=== PATIENT | male | born 1990 | race Two or more races ===

== ENCOUNTER 2020-04-13 18:40 | Emergency (ER) | payer SELFPAY ==
[~2020-04-13] VITALS: Ht 175.3 cm; Wt 77.1 kg
--- NOTE | 2020-04-13 19:05 | NUR ---
Received report from MIGUEL Darby. Assumed care of pt.
[2020-04-13] MEDS ORDERED: LORazepam 1mg tab ORAL ONE (19:15)
--- NOTE | 2020-04-13 19:18 | NUR ---
ED Nurse Note: pt vomiting. MD notified. MD placed order for PO ativan, pt unable to tolerate. MD notified & verbalized to switch to IV.
[2020-04-13] MEDS ORDERED: LORazepam Inj 2mg/ml 1ml IV ONE (19:30)
[2020-04-13 19:37] LABS: ANION GAP 20 mmol/L (5-15); BLOOD UREA NITROGEN 12 mg/dL (7-18); CALCIUM 9.1 MG/DL (8.5-10.1); CARBON DIOXIDE 21 MMOL/L (21-32); CHLORIDE 103 MMOL/L (98-107); POTASSIUM 3.3 MMOL/L (3.5-5.1); SODIUM 144 MMOL/L (136-145)
[2020-04-13 19:40] LABS: BASOPHILS % (AUTO) 1.5 % (0.0-2.0); EOSINOPHILS % (AUTO) 0.1 % (0.0-3.0); HEMATOCRIT 45.4 % (42.0-52.0); HEMOGLOBIN 15.4 G/DL (14.2-18.0); LYMPHOCYTES % (AUTO) 20.4 % (20.0-45.0); MEAN CORPUSCULAR VOLUME 93 FL (80-99); MONOCYTES % (AUTO) 5.7 % (1.0-10.0); NEUTROPHILS % (AUTO) 72.3 % (45.0-75.0); PLATELET COUNT 299 K/UL (150-450); RED BLOOD COUNT 4.86 M/UL (4.70-6.10); RED CELL DISTRIBUTION WIDTH 11.7 % (11.6-14.8); WHITE BLOOD COUNT 10.2 K/UL (4.8-10.8)
[2020-04-13 19:50] LABS: ALANINE AMINOTRANSFERASE 135 U/L (12-78); ALBUMIN 4.6 G/DL (3.4-5.0); ALBUMIN/GLOBULIN RATIO 1.1 (1.0-2.7); ALKALINE PHOSPHATASE 96 U/L (46-116); ASPARTATE AMINO TRANSFERASE 72 U/L (15-37); BILIRUBIN,TOTAL 0.6 MG/DL (0.2-1.0)
--- NOTE | 2020-04-13 21:08 | Emergency Room Report ---
History of Present Illness General Chief Complaint: Behavioral Complaint Source: Patient Present Illness HPI This patient states he has a history of anxiety. He states he was in his friend's car when he suddenly had a panic attack. He states he became nauseous and then felt like he could not breathe and then both his hands cramped up. He states he has never had this severe of an episode in the past. He denies recent illness. He denies cough or congestion. Denies fever or chills. He denies use of drugs or alcohol recently. He has no other complaints. Allergies: Coded Allergies: No Known Allergies (Unverified , 04/13/20) COVID-19 Screening Contact w/high risk pt: No Experienced COVID-19 symptoms?: No COVID-19 Testing performed SAP BPC ARCHITECT: No Patient History Past Medical History: none Social History: Reports: alcohol use - occassional, drug use - Occassional THC; Denies: smoking Reviewed Nursing Documentation: PMH: Agreed; PSxH: Agreed Nursing Documentation-PMH Past Medical History: No History, Except For History Of Psychiatric Problem: Yes - anxiety/panic attack Review of Systems All Other Systems: negative except mentioned in HPI Physical Exam Vital Signs Date Time Temp Pulse Resp B/P (MAP) Pulse Ox O2 Delivery O2 Flow Rate FiO2 04/13/20 18:32 96.6 116 30 153/92 (112) 99 Room Air Sp02 EP Interpretation: reviewed, normal General Appearance: no apparent distress, alert, GCS 15, non-toxic Head: normocephalic, atraumatic Eyes: bilateral eye normal inspection, bilateral eye PERRL ENT: hearing grossly normal, normal pharynx, no angioedema, normal voice Neck: normal inspection, full range of motion, supple/symm/no masses Respiratory: chest non-tender, lungs clear, normal breath sounds, no respiratory distress, no retraction, no accessory muscle use, speaking full sentences Cardiovascular #1: no edema, tachycardia Gastrointestinal: normal bowel sounds, non tender, soft, non-distended, no guarding, no rebound Rectal: deferred Musculoskeletal: back normal, normal range of motion, gait/station normal, non- tender Neurologic: alert, motor strength/tone normal, oriented x3, sensory intact, responsive, speech normal Psychiatric: judgement/insight normal, memory normal, no suicidal/homicidal ideation, anxious Skin: no rash, normal color Medical Decision Making Diagnostic Impression: Primary Impression: Panic attack Additional Impressions: Carpopedal spasm Hyperventilation syndrome ER Course This patient has findings on exam consistent with hyperventilation syndrome and carpopedal spasm. He was given Ativan IV and had resolution of his symptoms. His initial potassium was slightly low which was likely secondary to hyperventilation. However, I did repeat the potassium level and this showed... Laboratory Tests Test 04/13/20 18:55 04/13/20 19:23 White Blood Count 10.2 K/UL (4.8-10.8) Red Blood Count 4.86 M/UL (4.70-6.10) Hemoglobin 15.4 G/DL (14.2-18.0) Hematocrit 45.4 % (42.0-52.0) Mean Corpuscular Volume 93 FL (80-99) Mean Corpuscular Hemoglobin 31.6 PG (27.0-31.0) H Mean Corpuscular Hemoglobin Concent 33.9 G/DL (32.0-36.0) Red Cell Distribution Width 11.7 % (11.6-14.8) Platelet Count 299 K/UL (150-450) Mean Platelet Volume 7.1 FL (6.5-10.1) Neutrophils (%) (Auto) 72.3 % (45.0-75.0) Lymphocytes (%) (Auto) 20.4 % (20.0-45.0) Monocytes (%) (Auto) 5.7 % (1.0-10.0) Eosinophils (%) (Auto) 0.1 % (0.0-3.0) Basophils (%) (Auto) 1.5 % (0.0-2.0) Sodium Level 144 MMOL/L (136-145) Potassium Level 3.3 MMOL/L (3.5-5.1) L Chloride Level 103 MMOL/L (98-107) Carbon Dioxide Level 21 MMOL/L (21-32) Anion Gap 20 mmol/L (5-15) H Blood Urea Nitrogen 12 mg/dL (7-18) Creatinine 1.0 MG/DL (0.55-1.30) Estimated Glomerular Filtration Rate > 60 mL/min (>60) Glucose Level 123 MG/DL (74-106) H Calcium Level 9.1 MG/DL (8.5-10.1) Total Bilirubin 0.6 MG/DL (0.2-1.0) Aspartate Amino Transferase (AST) 72 U/L (15-37) H Alanine Aminotransferase (ALT) 135 U/L (12-78) H Alkaline Phosphatase 96 U/L (46-116) Total Protein 8.8 G/DL (6.4-8.2) H Albumin 4.6 G/DL (3.4-5.0) Globulin 4.2 g/dL Albumin/Globulin Ratio 1.1 (1.0-2.7) Thyroid Stimulating Hormone (TSH) 1.536 uiU/mL (0.358-3.740) Salicylates Level 1.3 ug/mL (2.8-20) L Acetaminophen Level < 2 MCG/ML (10-30) L Serum Alcohol < 3 mg/dL POC Whole Blood Glucose 100 MG/DL (74-106) EKG Diagnostic Results Rate: tachycardiac Rhythm: other - S.tachycardia Rhythm Strip Diag. Results EP Interpretation: yes Rate: 100's Rhythm: no PVC's, no ectopy, other - S.tachycardia Last Vital Signs Date Time Temp Pulse Resp B/P (MAP) Pulse Ox O2 Delivery O2 Flow Rate FiO2 04/13/20 19:33 91 18 144/73 95 04/13/20 18:32 96.6 Room Air Status: improved Disposition: HOME, SELF-CARE Condition: Improved Serene King DO Apr 13, 2020 21:08
--- NOTE | 2020-04-13 21:35 | NUR ---
ED Nurse Note: Pt is sleeping, Potassium level redrawn and sent to lab. No new needs identified at this time.
[2020-04-13 21:36] VITALS: BP 123/79
[2020-04-13 22:38] LABS: CREATINE KINASE 844 U/L (26-308)
--- NOTE | 2020-04-13 23:28 | NUR ---
ED Nurse Note: Pt is resting, will open eyes to verbal. No new needs identified at this time.
[2020-04-13 23:30] VITALS: BP 117/71
--- NOTE | 2020-04-14 | NUR ---
ER DISCHARGE NOTE: Patient is cleared to be discharged per ER MD, pt is aaox4, on room air, with stable vital signs. pt was given d/c instructions, pt was able to verbalize understanding, pt id band and iv site removed without complications. pt is able to ambulate with steady gait. pt took all belongings.
[2020-04-14 00:01] VITALS: BP 139/82
--- NOTE | 2020-04-14 16:17 | Cardiology Report ---
APPROVED REPORT EKG Measurement Heart [id number] <Conclusion> Sinus tachycardia Otherwise normal ECG
== END 2020-04-14 | disposition home or self-care (01) ==
LOC: EDBD 18:40 → EMR 19:00
DX: F41.0 Panic disorder [episodic paroxysmal anxiety] (principal); R29.0 Tetany; F41.9 Anxiety disorder, unspecified; R00.0 Tachycardia, unspecified
CPT/HCPCS: 36415; 80053; 82550; 82962; 84132; 84443; 85025; 93005; 96361; 96374; 99284; G0480; J7030; J8499